=== PATIENT | female | born 1945 | race Caucasian/White ===

== ENCOUNTER 2018-04-05 04:40 | Emergency (ER) | payer MEDICARE ==
[2018-04-05 05:12] VITALS: BP 178/85
[2018-04-05] MEDS ORDERED: Sodium Chloride 0.9% 10 ML Syringe FLUSH PRN ×2 (05:18→05:56)
--- NOTE | 2018-04-05 05:47 | EDM.PDOC ---
ED HPI GENERAL MEDICAL PROBLEM - General Chief Complaint: Gastrointestinal Problem Stated Complaint: WEAK Time Seen by Provider: 04/05/18 05:06 Source of Information: Reports: Patient, Family, Old Records, RN Notes Reviewed History Limitations: Reports: No Limitations - History of Present Illness INITIAL COMMENTS - FREE TEXT/NARRATIVE: Brought by her Chief complaint Weakness History of present illness 72-year-old female with onset of fever and generalized weakness since last evening. He first started getting ill 2 days ago with generalized headache. Last night she needs some help getting into bed and then she need to go the bathroom this morning she couldn't get up about her 's assistance. Some nausea, vomited 1. Headache is frontal and throbbing/pulsing No visual changes Some nasal congestion, she feels like she might have a sinus infection. However no nasal obstruction no no coryza no cough No chest pain or shortness of breath No abdominal pain no diarrhea No skin rashes Some achiness. In particular she's no swelling in several of her fingers, she has had some arthritis previously but has gotten much worse. History of stroke with right-sided weakness, 2 years ago, fully recovered from that headache Pain Score (Numeric/FACES): 6 - Related Data Allergies Allergy/AdvReac Type Severity Reaction Status Date / Time Penicillins Allergy Rash Verified 04/05/18 04:44 rosuvastatin calcium Allergy Muscle Verified 04/05/18 04:44 [From Crestor] Aches Sulfa (Sulfonamide Allergy Rash Verified 04/05/18 04:44 Antibiotics) Home Meds: Home Meds Diltiazem HCl [Cartia Xt] 120 mg PO DAILY 04/05/18 [History] Doxycycline Monohydrate 100 mg PO BID #20 capsule 04/05/18 [Rx] atorvaSTATin Calcium [Atorvastatin Calcium] 20 mg PO BEDTIME 04/05/18 [History] Past Medical History HEENT History: Reports: Impaired Vision Cardiovascular History: Reports: High Cholesterol, Hypertension Respiratory History: Reports: Pneumonia, Recurrent Gastrointestinal History: Reports: None Genitourinary History: Reports: None [employer] History: Reports: Musculoskeletal History: Reports: Arthritis, Fracture Neurological History: Reports: CVA Psychiatric History: Reports: Depression Endocrine/Metabolic History: Reports: None Hematologic History: Reports: None Immunologic History: Reports: None Oncologic (Cancer) History: Reports: Squamous Cell Carcinoma Other Oncologic History: skin cancer Dermatologic History: Reports: Other (See Below) Other Dermatologic History: skin cancer removed - Infectious Disease History Infectious Disease History: Reports: Chicken Pox, Measles, Mumps - Past Surgical History HEENT Surgical History: Reports: Tonsillectomy Female Surgical History: Reports: Tubal Ligation Social & Family History - Tobacco Use Smoking Status *Q: Never Smoker - Caffeine Use Caffeine Use: Reports: Coffee Caffeine Use Comment: quit cafeine 2 days ago - Recreational Drug Use Recreational Drug Use: No ED ROS GENERAL - Review of Systems Review Of Systems: See Below Constitutional: Reports: Fever, Malaise, Weakness, Decreased Appetite, Other ( Decreased activity). Denies: Night Sweats, Diaphoresis HEENT: Reports: Rhinitis, Sinus Problem. Denies: Ear Pain, Eye Pain, Throat Pain Respiratory: Reports: No Symptoms. Denies: Shortness of Breath, Cough Cardiovascular: Reports: No Symptoms Endocrine: Reports: Fatigue GI/Abdominal: Reports: Nausea, Vomiting (Once). Denies: Abdominal Pain, Diarrhea, Hematemesis : Reports: No Symptoms Musculoskeletal: Reports: Joint Pain (Fingers), Joint Swelling (Fingers of the hands). Denies: Muscle Stiffness Skin: Reports: No Symptoms Neurological: Reports: Headache, Difficulty Walking (2 weakness needing assistance), Weakness, Gait Disturbance (Due to weakness needing assistance). Denies: Confusion, Dizziness, Change in Speech Psychiatric: Reports: No Symptoms Hematologic/Lymphatic: Reports: No Symptoms Immunologic: Reports: No Symptoms ED EXAM, GENERAL - Physical Exam Exam: See Below Exam Limited By: No Limitations General Appearance: Alert, Mild Distress, Other (She looks quite tiredLow-grade fever with elevation of systolic blood pressure, no difficulty speaking or breathing) Eye Exam: Bilateral Eye: EOMI, Normal Inspection Ears: Normal External Exam, Normal Canal, Normal TMs Nose: Normal Inspection. No: Nasal Deformity, Nasal Swelling Throat/Mouth: Normal Inspection, Normal Lips, Normal Oropharynx, Normal Voice Head: Atraumatic, Normocephalic Neck: Normal Inspection, Supple. No: Lymphadenopathy (R), Lymphadenopathy (L) Respiratory/Chest: No Respiratory Distress, Lungs Clear, Normal Breath Sounds, No Accessory Muscle Use Cardiovascular: Normal Peripheral Pulses, Regular Rate, Rhythm GI/Abdominal: Normal Bowel Sounds, Soft, Non-Tender, No Distention, No Abnormal Bruit Back Exam: Normal Inspection Extremities: Normal Inspection, Normal Range of Motion, Non-Tender. No: Pedal Edema Neurological: Alert, Oriented, No Motor/Sensory Deficits, Slow to Respond Psychiatric: Normal Affect Skin Exam: Warm, Dry, Intact, Normal Color, No Rash Lymphatic: No Adenopathy Course - Vital Signs Last Recorded V/S: Last Vital Signs Temp 38.4 C H 04/05/18 07:14 Pulse 81 04/05/18 04:57 Resp 16 04/05/18 04:57 BP 178/85 H 04/05/18 04:57 Pulse Ox 98 04/05/18 04:57 - Orders/Labs/Meds Orders: Active Orders 24 hr Category Date Time Status EKG Documentation Completion [RC] ASDIRECTED Care 04/05/18 05:19 Active Peripheral IV Care [RC] . DIRECTED Care 04/05/18 05:56 Active Chest 1V Frontal [CR] Stat Exams 04/05/18 05:18 Taken CULTURE BLOOD [BC] Urgent Lab 04/05/18 06:00 Received CULTURE BLOOD [BC] Urgent Lab 04/05/18 06:10 Received LYME, TOTAL AB TEST/REFLEX Routine Lab 04/05/18 05:50 Ordered UA W/MICROSCOPIC [URIN] Stat Lab 04/05/18 05:55 Ordered Sodium Chloride 0.9% [Normal Saline] 1,000 ml Med 04/05/18 06:00 Active IV ASDIRECTED Sodium Chloride 0.9% [Saline Flush] Med 04/05/18 05:18 Active 10 ml FLUSH ASDIRECTED PRN Sodium Chloride 0.9% [Saline Flush] Med 04/05/18 05:56 Active 10 ml FLUSH ASDIRECTED PRN Blood Culture x2 Reflex Set [OM.PC] Urgent Oth 04/05/18 05:58 Ordered Peripheral IV Insertion Adult [OM.PC] Routine Oth 04/05/18 05:56 Ordered EKG 12 Lead [EK] Routine Ther 04/05/18 05:18 Ordered Medication Orders Sodium Chloride (Normal Saline) 1,000 mls @ 250 mls/hr IV ASDIRECTED AMISHA Last Admin: 04/05/18 06:15 Dose: 250 mls/hr Sodium Chloride (Saline Flush) 10 ml FLUSH ASDIRECTED PRN PRN Reason: Keep Vein Open Last Admin: 04/05/18 06:29 Dose: 10 ml Sodium Chloride (Saline Flush) 10 ml FLUSH ASDIRECTED PRN PRN Reason: Keep Vein Open Last Admin: 04/05/18 07:15 Dose: 10 ml Labs: Laboratory Tests 04/05/18 04/05/18 04/05/18 Range/Units 05:30 05:30 05:57 WBC 7.0 (4.5-11.0) K/uL RBC 4.87 (3.30-5.50) M/uL Hgb 14.0 (12.0-15.0) g/dL Hct 41.4 (36.0-48.0) % MCV 85 (80-98) fL MCH 29 (27-31) pg MCHC 34 (32-36) % Plt Count 221 (150-400) K/uL Sodium 137 L (140-148) mmol/L Potassium 3.9 (3.6-5.2) mmol/L Chloride 103 (100-108) mmol/L Carbon Dioxide 28 (21-32) mmol/L Anion Gap 9.9 (5.0-14.0) mmol/L BUN 16 (7-18) mg/dL Creatinine 1.0 (0.6-1.0) mg/dL Est Cr Clr Drug Dosing 44.56 mL/min Estimated GFR (MDRD) 55 L (>60) Glucose 142 H (74-106) mg/dL Lactic Acid 0.8 (0.4-2.0) mmol/L Calcium 9.0 (8.5-10.1) mg/dL Total Bilirubin 0.5 D (0.2-1.0) mg/dL AST 34 D (15-37) U/L ALT 69 D (12-78) U/L Alkaline Phosphatase 117 H (46-116) U/L Troponin I < 0.017 (0.000-0.056) ng/mL Total Protein 7.0 (6.4-8.2) g/dL Albumin 3.5 (3.4-5.0) g/dL Globulin 3.5 (2.3-3.5) g/dL Albumin/Globulin Ratio 1.0 L (1.2-2.2) Meds: Medications Generic Name Dose Route Start Last Admin Trade Name Freq PRN Reason Stop Dose Admin Sodium Chloride 1,000 mls @ 250 mls/hr 04/05/18 06:00 04/05/18 06:15 Normal Saline IV 250 mls/hr ASDIRECTED AMISHA Administration Sodium Chloride 10 ml 04/05/18 05:18 04/05/18 06:29 Saline Flush FLUSH 10 ml ASDIRECTED PRN Administration Keep Vein Open Sodium Chloride 10 ml 04/05/18 05:56 04/05/18 07:15 Saline Flush FLUSH 10 ml ASDIRECTED PRN Administration Keep Vein Open Discontinued Medications Generic Name Dose Route Start Last Admin Trade Name Francisco PRN Reason Stop Dose Admin Acetaminophen 650 mg 04/05/18 07:15 04/05/18 07:14 Tylenol PO 04/05/18 07:16 650 mg ONETIME ONE Administration Ondansetron HCl 4 mg 04/05/18 05:56 04/05/18 06:28 Zofran IVPUSH 04/05/18 05:57 4 mg ONETIME ONE Administration - Re-Assessments/Exams Free Text/Narrative Re-Assessment/Exam: 04/05/18 05:48 72-year-old female presenting with fever headache and arthritis in her fingers, also nausea and emesis 1. Week to the point of needing assistance. Subtle findings on exam although she does have arthritis of her fingers. Alert and cooperative. Differential diagn of febrile illness includes viral infection, tickborne illness, pneumonia, urinary tract infection and early respiratory infection. Chest x-ray negative by my interpretation EKG shows sinus rhyth Q waves in III and F suggesting prior inferior infarction , no acute changes by my interpretation recheck your 04/05/18 07:01 Nausea, second emesis here in emergency IV saline administered and ondansetron 4 mg IV Blood cultures are pending WBC hemoglobin and platelets normal BUN/creatinine electrolytes normal except sodium 137 hepatic profile normal Lactate normal Troponin normal Impression is fever of uncertain cause, low-grade fever. Waiting for urinalysis Transferred to Dr. Castle pending results and disposition 04/05/18 07:03 04/05/18 07:20 discussion with patient and her will treat for possible tickborne illness Follow-up with primary care within the next week Return to emergency if worsening symptoms Departure - Departure Time of Disposition: 07:20 Disposition: Admitted As Inpatient 67 Condition: Good Clinical Impression: Febrile illness, acute Nausea and vomiting Qualifiers: Vomiting type: unspecified Vomiting Intractability: non-intractable Qualified Code(s): R11.2 - Nausea with vomiting, unspecified - Discharge Information Prescriptions: Doxycycline Monohydrate 100 mg PO BID #20 capsule Instructions: Fever, Adult Referrals: PCP,None [Primary Care Provider] - Forms: ED Department Discharge Additional Instructions: The cause of your fever is unclear at this time. Blood count is normal, chest x-ray does not show any signs of infection nor does urine. You have several symptoms suggestive of tickborne illness including fever, joint swelling, headache, and muscle weakness. For this reason you are being treated with doxycycline. Follow-up with your primary care provider within the next week for recheck and to get the remaining blood test results recommended Return to emergency if repeated vomiting, unable to walk, severe headache, or uncontrollable fever You may take significant in ibuprofen for pain and fever as needed - My Orders Last 24 Hours: My Active Orders 04/05/18 05:18 Chest 1V Frontal [CR] Stat Sodium Chloride 0.9% [Saline Flush] 10 ml FLUSH ASDIRECTED PRN EKG 12 Lead [EK] Routine 04/05/18 05:19 EKG Documentation Completion [RC] ASDIRECTED 04/05/18 05:50 LYME, TOTAL AB TEST/REFLEX Routine 04/05/18 05:55 UA W/MICROSCOPIC [URIN] Stat 04/05/18 05:56 Peripheral IV Care [RC] . DIRECTED Sodium Chloride 0.9% [Saline Flush] 10 ml FLUSH ASDIRECTED PRN Peripheral IV Insertion Adult [OM.PC] Routine 04/05/18 05:58 Blood Culture x2 Reflex Set [OM.PC] Urgent 04/05/18 06:00 CULTURE BLOOD [BC] Urgent Sodium Chloride 0.9% [Normal Saline] 1,000 ml IV ASDIRECTED 04/05/18 06:10 CULTURE BLOOD [BC] Urgent - Assessment/Plan Last 24 Hours: My Active Orders 04/05/18 05:18 Chest 1V Frontal [CR] Stat Sodium Chloride 0.9% [Saline Flush] 10 ml FLUSH ASDIRECTED PRN EKG 12 Lead [EK] Routine 04/05/18 05:19 EKG Documentation Completion [RC] ASDIRECTED 04/05/18 05:50 LYME, TOTAL AB TEST/REFLEX Routine 04/05/18 05:55 UA W/MICROSCOPIC [URIN] Stat 04/05/18 05:56 Peripheral IV Care [RC] . DIRECTED Sodium Chloride 0.9% [Saline Flush] 10 ml FLUSH ASDIRECTED PRN Peripheral IV Insertion Adult [OM.PC] Routine 04/05/18 05:58 Blood Culture x2 Reflex Set [OM.PC] Urgent 04/05/18 06:00 CULTURE BLOOD [BC] Urgent Sodium Chloride 0.9% [Normal Saline] 1,000 ml IV ASDIRECTED 04/05/18 06:10 CULTURE BLOOD [BC] Urgent
[2018-04-05] MEDS ORDERED: Acetaminophen 325 MG Tab, 50 Tab Bulk Bottle PO ONE (05:51)
[2018-04-05] MEDS ORDERED: Ondansetron 4 MG/2 ML SDV IVPUSH ONE (05:56)
[2018-04-05] MEDS ORDERED: Sodium Chloride 0.9% 1,000 ML IV SCH (06:00)
[2018-04-05] MEDS ORDERED: Acetaminophen 325 MG Tab PO ONE (07:15)
--- NOTE | 2018-04-05 08:55 | CR ---
CHEST: Portable CLINICAL HISTORY:Fever and weakness COMPARISON:None FINDINGS: Heart size and pulmonary vascular appear normal. There is some minimal patchy density in t he right lower lung field. Impression: Minimal right lower lobe airspace disease. If clinically relevant, short-term follow-up t wo-view chest recommended
[2018-04-09 10:11] LABS: LYME IGG/IGM AB <0.91 ISR (0.00-0.90)
== END 2018-04-05 07:55 | disposition critical access hospital (66) ==
LOC: JP.ED 04:40
DX: R50.9 Fever, unspecified (principal); R11.2 Nausea with vomiting, unspecified; E78.00 Pure hypercholesterolemia, unspecified; I10 Essential (primary) hypertension; Z87.01 Personal history of pneumonia (recurrent); Z88.0 Allergy status to penicillin; Z88.2 Allergy status to sulfonamides; Z79.899 Other long term (current) drug therapy
CPT/HCPCS: 36415; 71045; 80053; 81001; 83605; 84484; 85027; 87040; 93005; 96361; 96374; 99285; A9270; J2405; J7030; J7050; 86618; 99283

== ENCOUNTER 2018-04-06 13:30 | Emergency (ER) | payer MEDICARE ==
[2018-04-06 14:32] VITALS: BP 149/73
--- NOTE | 2018-04-06 16:35 | EDM.PDOC ---
ED HPI GENERAL MEDICAL PROBLEM - General Chief Complaint: Gastrointestinal Problem Stated Complaint: weakness nausA Time Seen by Provider: 04/06/18 14:45 Source of Information: Reports: Patient, Family History Limitations: Reports: No Limitations - History of Present Illness INITIAL COMMENTS - FREE TEXT/NARRATIVE: 72-year-old female who was seen in the emergency room 36 hours ago with fatigue , generalized malaise, nausea and headache was started on doxycycline for presumptive tick disease and sent home. She has taken 3 doses of doxycycline, the fourth dose was followed by emesis. She's had no fevers or chills, no rash, but does continue to have generalized malaise, weakness, and moderate joint pains. Her headache is continuing as well. She called the clinic and talked to her primary provider and he said something more must be going on and tick disease and told her to come back to the emergency room. Her has to assist her when she walks because she feels so weak but she has no asymmetry of symptoms, visual complaints, chest pain or abdominal pain, denies diarrhea. Onset: Gradual (Over the past 3-4 days) Severity: Moderate Associated Symptoms: Reports: Headaches, Loss of Appetite, Malaise, Nausea/ Vomiting, Weakness. Denies: Confusion, Chest Pain, Cough, Diaphoresis, Fever/ Chills, Shortness of Breath - Related Data Allergies Allergy/AdvReac Type Severity Reaction Status Date / Time Penicillins Allergy Rash Verified 04/05/18 04:44 rosuvastatin calcium Allergy Muscle Verified 04/05/18 04:44 [From Crestor] Aches Sulfa (Sulfonamide Allergy Rash Verified 04/05/18 04:44 Antibiotics) Home Meds: Home Meds Diltiazem HCl [Cartia Xt] 120 mg PO DAILY 04/05/18 [History] Doxycycline Monohydrate 100 mg PO BID #20 capsule 04/05/18 [Rx] atorvaSTATin Calcium [Atorvastatin Calcium] 20 mg PO BEDTIME 04/05/18 [History] Past Medical History HEENT History: Reports: Impaired Vision Cardiovascular History: Reports: High Cholesterol, Hypertension Respiratory History: Reports: Pneumonia, Recurrent Gastrointestinal History: Reports: None Genitourinary History: Reports: None [employer] History: Reports: Musculoskeletal History: Reports: Arthritis, Fracture Neurological History: Reports: CVA Psychiatric History: Reports: Depression Endocrine/Metabolic History: Reports: None Hematologic History: Reports: None Immunologic History: Reports: None Oncologic (Cancer) History: Reports: Squamous Cell Carcinoma Other Oncologic History: skin cancer Dermatologic History: Reports: Other (See Below) Other Dermatologic History: skin cancer removed - Infectious Disease History Infectious Disease History: Reports: Chicken Pox, Measles, Mumps - Past Surgical History HEENT Surgical History: Reports: Tonsillectomy Female Surgical History: Reports: Tubal Ligation Social & Family History - Tobacco Use Smoking Status *Q: Never Smoker Second Hand Smoke Exposure: No - Caffeine Use Caffeine Use: Reports: Coffee Caffeine Use Comment: quit cafeine 2 days ago - Recreational Drug Use Recreational Drug Use: No ED ROS GENERAL - Review of Systems Review Of Systems: See Below Constitutional: Reports: Malaise, Weakness, Decreased Appetite. Denies: Fever, Chills HEENT: Denies: Vision Change Respiratory: Denies: Shortness of Breath, Cough Cardiovascular: Denies: Chest Pain Endocrine: Reports: Fatigue GI/Abdominal: Reports: Nausea. Denies: Abdominal Pain : Reports: No Symptoms Musculoskeletal: Reports: Other (Diffuse joint pains, especially her arthritic joints such as hands and wrists) Skin: Reports: No Symptoms Neurological: Reports: Headache, Weakness. Denies: Confusion, Dizziness Psychiatric: Reports: No Symptoms ED EXAM, GENERAL - Physical Exam Exam: See Below Exam Limited By: No Limitations General Appearance: Alert, No Apparent Distress Eye Exam: Bilateral Eye: Normal Inspection Head: Atraumatic Neck: Normal Inspection, Supple, Other (No pain with range of motion) Respiratory/Chest: No Respiratory Distress, Lungs Clear Cardiovascular: Regular Rate, Rhythm GI/Abdominal: Tender (General discomfort with palpation but no focal tenderness) Extremities: Normal Inspection, No Pedal Edema Neurological: Alert, Oriented, No Motor/Sensory Deficits Psychiatric: Normal Affect, Normal Mood Skin Exam: Warm, Dry Course - Vital Signs Last Recorded V/S: Last Vital Signs Temp 97.9 F 04/06/18 14:29 Pulse 64 04/06/18 14:29 Resp 14 04/06/18 14:29 BP 149/73 H 04/06/18 14:29 Pulse Ox 96 04/06/18 14:29 - Orders/Labs/Meds Orders: Active Orders 24 hr Category Date Time Status WE[place] VIRUS ANTIBODY,SERUM Stat Lab 04/06/18 15:50 Received Labs: Laboratory Tests 04/06/18 04/06/18 Range/Units 15:43 15:43 WBC 7.0 (4.5-11.0) K/uL RBC 4.53 (3.30-5.50) M/uL Hgb 13.2 (12.0-15.0) g/dL Hct 38.4 (36.0-48.0) % MCV 85 (80-98) fL MCH 29 (27-31) pg MCHC 34 (32-36) % Plt Count 199 (150-400) K/uL Neut % (Auto) 60 (36-66) % Lymph % (Auto) 27 (24-44) % [place] % (Auto) 13 H (2-6) % Eos % (Auto) 0 L (2-4) % Baso % (Auto) 0 (0-1) % Sodium 134 L (140-148) mmol/L Potassium 4.1 (3.6-5.2) mmol/L Chloride 102 (100-108) mmol/L Carbon Dioxide 23 (21-32) mmol/L Anion Gap 13.1 (5.0-14.0) mmol/L BUN 19 H (7-18) mg/dL Creatinine 0.9 (0.6-1.0) mg/dL Est Cr Clr Drug Dosing 47.43 mL/min Estimated GFR (MDRD) > 60 (>60) Glucose 97 (74-106) mg/dL Calcium 8.8 (8.5-10.1) mg/dL Creatine Kinase 53 (26-192) U/L C-Reactive Protein 2.19 H (0.0-0.3) mg/dL - Re-Assessments/Exams Free Text/Narrative Re-Assessment/Exam: 04/06/18 17:32 CBC, CMP were redrawn as well as a West Nile virus antibody and CRP. CBC is still normal other than a slight elevation in monocytic percentage. CMP was also reassuring. CRP was only slightly elevated at 2.19. CK was normal. Discussed with the patient and her that this likely is a viral syndrome. She can continue with the doxycycline, I also gave her some Zofran to use sublingual for nausea and 10 hydrocodone for extra pain control over the next 3-5 days. She is going to increase activity and diet as tolerated and return if worsening. No indications for lumbar puncture at this time. Departure - Departure Time of Disposition: 17:31 Disposition: Home, Self-Care 01 Condition: Good Clinical Impression: Viral syndrome - Discharge Information Instructions: West Nile Virus Referrals: Edward Davis MD [Primary Care Provider] - Forms: ED Department Discharge Care Plan Goals: Rest, fluids, a regular dose of ibuprofen or naproxen should help. Add stronger pain medications if needed and use Zofran for nausea. Increase diet and activity as tolerated and consider rechecking in 3-4 days if not improving satisfactorily or return anytime if worsening - My Orders Last 24 Hours: My Active Orders 04/06/18 15:50 WE[place] VIRUS ANTIBODY,SERUM Stat - Assessment/Plan Last 24 Hours: My Active Orders 04/06/18 15:50 [place] VIRUS ANTIBODY,SERUM Stat
== END 2018-04-06 16:50 | disposition home or self-care (01) ==
LOC: JP.ED 13:30
DX: B34.9 Viral infection, unspecified (principal); E78.00 Pure hypercholesterolemia, unspecified; I10 Essential (primary) hypertension; Z88.0 Allergy status to penicillin; Z88.2 Allergy status to sulfonamides; Z88.8 Allergy status to other drugs, medicaments and biological substances; Z79.899 Other long term (current) drug therapy
CPT/HCPCS: 36415; 80048; 82550; 85025; 86140; 86788; 86789; 99283; 99285

== ENCOUNTER 2018-04-25 21:06 | Emergency (ER) | payer MEDICARE ==
--- NOTE | 2018-04-25 22:37 | EDM.PDOC ---
ED HPI GENERAL MEDICAL PROBLEM - General Chief Complaint: Fever Stated Complaint: FEVER,HEADACHE Time Seen by Provider: 04/25/18 21:30 Source of Information: Reports: Patient, Family History Limitations: Reports: No Limitations - History of Present Illness INITIAL COMMENTS - FREE TEXT/NARRATIVE: 73-year-old female who was receiving IV antibiotics for presumptive Lyme's disease was doing better, was active around the house last several days. Over the past 24-48 hours has developed abdominal cramps, diarrhea and yellowish stools. She has now developed a low-grade fever and a headache again. Onset: Gradual (Over the last 2 days) Severity: Moderate Associated Symptoms: Reports: Fever/Chills, Headaches, Other (Diarrhea with abdominal cramps). 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 (see below) Other Treatments TUBE CLEANING OPERATOR: Unknown Abdomen Pain Score (Numeric/FACES): 6 - Related Data Allergies Allergy/AdvReac Type Severity Reaction Status Date / Time Penicillins Allergy Rash Verified 04/25/18 21:35 Sulfa (Sulfonamide Allergy Rash Verified 04/25/18 21:35 Antibiotics) rosuvastatin calcium AdvReac Muscle Verified 04/25/18 21:35 [From Crestor] Aches Home Meds: Home Meds Diltiazem HCl [Cartia Xt] 120 mg PO .SUPPER 04/05/18 [History] atorvaSTATin Calcium [Atorvastatin Calcium] 20 mg PO BEDTIME 04/05/18 [History] Aspirin 81 mg PO DAILY 04/16/18 [History] Warfarin [Coumadin] 5 mg PO .EVENING 04/16/18 [History] Lisinopril 20 mg PO DAILY 04/18/18 [History] Metoprolol Tartrate 50 mg PO BID 04/18/18 [History] [id number] Sodium [Ceftriaxone] 2 gm IV DAILY 04/25/18 [History] Acetaminophen [Tylenol Extra Strength] 1,000 mg PO ASDIRECTED PRN 04/26/18 [ History] Past Medical History HEENT History: Reports: Impaired Vision Cardiovascular History: Reports: High Cholesterol, Hypertension Respiratory History: Reports: Bronchitis, Recurrent, Pneumonia, Recurrent Gastrointestinal History: Reports: None Genitourinary History: Reports: None 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: Musculoskeletal History: Reports: Arthritis, Fracture, Other (See Below) Other Musculoskeletal History: left ankle- no metal Neurological History: Reports: CVA, Other (See Below) Other Neuro History: CVA 10/2015 Psychiatric History: Reports: Anxiety, Depression Endocrine/Metabolic History: Reports: None Hematologic History: Reports: None Immunologic History: Reports: None Oncologic (Cancer) History: Reports: Squamous Cell Carcinoma Other Oncologic History: skin cancer Dermatologic History: Reports: Other (See Below) Other Dermatologic History: skin cancer removed - Infectious Disease History Infectious Disease History: Reports: Chicken Pox - Past Surgical History Head Surgeries/Procedures: Reports: None HEENT Surgical History: Reports: Tonsillectomy Cardiovascular Surgical History: Reports: None Respiratory Surgical History: Reports: None GI Surgical History: Reports: Colonoscopy Female Surgical History: Reports: Tubal Ligation Endocrine Surgical History: Reports: None Neurological Surgical History: Reports: None Musculoskeletal Surgical History: Reports: None Oncologic Surgical History: Reports: None Dermatological Surgical History: Reports: Skin Biopsy, Other (See Below) Social & Family History - Tobacco Use Smoking Status *Q: Never Smoker Second Hand Smoke Exposure: No - Caffeine Use Caffeine Use: Reports: Coffee Caffeine Use Comment: quit cafeine 2 days ago - Recreational Drug Use Recreational Drug Use: No ED ROS GENERAL - Review of Systems Review Of Systems: See Below Constitutional: Reports: Fever, Malaise. Denies: Chills HEENT: Denies: Eye Pain, Vision Change Respiratory: Denies: Shortness of Breath Cardiovascular: Denies: Chest Pain GI/Abdominal: Reports: Abdominal Pain (Intermittent cramping), Diarrhea. Denies : Nausea, Vomiting Skin: Reports: No Symptoms Neurological: Reports: Headache ED EXAM, GENERAL - Physical Exam Exam: See Below Exam Limited By: No Limitations General Appearance: Alert, No Apparent Distress Eye Exam: Bilateral Eye: Normal Inspection (No jaundice) Respiratory/Chest: No Respiratory Distress Cardiovascular: Regular Rate, Rhythm. No: Tachycardia GI/Abdominal: Soft, Tender (Mild tenderness diffusely, especially in the periumbilical area but no focal guarding or rebound) Extremities: Other (A PICC line is in the right arm, no inflammation) Neurological: Alert, Oriented, No Motor/Sensory Deficits Psychiatric: Flat Affect Skin Exam: Warm, Dry Course - Vital Signs Last Recorded V/S: Last Vital Signs Temp 100.8 F H 04/25/18 23:19 Pulse 76 04/25/18 23:19 Resp 14 04/25/18 23:19 BP 164/84 H 04/25/18 23:19 Pulse Ox 98 04/25/18 23:19 - Orders/Labs/Meds Orders: Active Orders 24 hr Category Date Time Status WBC, STOOL [OP] Stat Lab 04/25/18 22:32 Ordered - Re-Assessments/Exams Free Text/Narrative Re-Assessment/Exam: 04/25/18 23:54 A strong suspicion for C. difficile is present, patient attempted several times over 3 hours to give a stool sample but was unable. They did not want to stay around so supplies were given for a stool sample, she was able to give a very small amount prior to leaving that showed no significant WBCs. Departure - Departure Time of Disposition: 01:00 Disposition: Home, Self-Care 01 Condition: Good Clinical Impression: Diarrhea Qualifiers: Diarrhea type: presumed infectious Qualified Code(s): R19.7 - Diarrhea, unspecified - Discharge Information Instructions: Diarrhea, Adult, [id number] Referrals: Edward Davis MD [Primary Care Provider] - Forms: ED Department Discharge Care Plan Goals: If you feel better tomorrow, fever and diarrhea are better, no further workup or treatment is needed. If not improving satisfactorily bring a stool sample in for testing when able. - My Orders Last 24 Hours: My Active Orders 04/25/18 22:32 WBC, STOOL [OP] Stat - Assessment/Plan Last 24 Hours: My Active Orders 04/25/18 22:32 WBC, STOOL [OP] Stat
[2018-04-25 23:21] VITALS: BP 164/84
== END 2018-04-26 00:20 | disposition home or self-care (01) ==
LOC: JP.ED 21:06
DX: R19.7 Diarrhea, unspecified (principal); I10 Essential (primary) hypertension; Z79.899 Other long term (current) drug therapy; Z79.82 Long term (current) use of aspirin; Z88.0 Allergy status to penicillin; Z88.2 Allergy status to sulfonamides; Z88.8 Allergy status to other drugs, medicaments and biological substances
CPT/HCPCS: 89055; 99284

== ENCOUNTER 2019-02-21 09:20 | Emergency (ER) | payer MEDICARE ==
[2019-02-21 09:28] VITALS: BP 192/75
--- NOTE | 2019-02-21 09:48 | EDM.PDOC ---
ED HPI GENERAL MEDICAL PROBLEM - General Chief Complaint: Neuro Symptoms/Deficits Stated Complaint: TROUBLE SPEAKING Time Seen by Provider: 02/21/19 09:39 Source of Information: Reports: Patient, Family History Limitations: Reports: No Limitations - History of Present Illness INITIAL COMMENTS - FREE TEXT/NARRATIVE: 73-year-old female who woke up this morning with expressive aphasia. She has a history of a left-sided ischemic stroke several years ago. Because of the persistence of symptoms she was brought in to the emergency room, however shortly after arriving her symptoms seemed to have resolved. She has no peripheral weakness, facial weakness, headache, fever, nausea or vomiting or other symptoms. Last year she developed a period of encephalitis felt to be from Lyme's disease although was never proven. Onset: Unknown/Unsure (Symptoms developed sometime overnight) Associated Symptoms: Reports: No Other Symptoms - Related Data Allergies Allergy/AdvReac Type Severity Reaction Status Date / Time Penicillins Allergy Rash Verified 02/21/19 09:28 Sulfa (Sulfonamide Allergy Rash Verified 02/21/19 09:28 Antibiotics) rosuvastatin calcium AdvReac Muscle Verified 02/21/19 09:28 [From [place]] Aches Home Meds: Home Meds Diltiazem HCl [Cartia Xt] 120 mg PO .SUPPER 04/05/18 [History] atorvaSTATin Calcium [Atorvastatin Calcium] 20 mg PO BEDTIME 04/05/18 [History] Aspirin 81 mg PO DAILY 04/16/18 [History] Metoprolol Tartrate 50 mg PO BID 04/18/18 [History] Citalopram Hydrobromide [Celexa] 10 mg PO DAILY #30 tablet 05/06/18 [Rx] LORazepam 0.5 mg PO QID #12 tablet 05/06/18 [Rx] Lactobacillus Rhamnosus GG [Culturelle] 1 cap PO BID #60 cap 05/06/18 [Rx] Lisinopril [Prinivil] 20 mg PO BID #60 tablet 05/06/18 [Rx] Magnesium Oxide 400 mg PO BID #60 tablet 05/06/18 [Rx] Sotalol [Betapace] 40 mg PO BID #60 tablet 05/06/18 [Rx] Methotrexate 2.5 mg PO ASDIRECTED 02/21/19 [History] Warfarin [Coumadin] 5 mg PO DAILY 02/21/19 [History] Past Medical History HEENT History: Reports: Impaired Vision Cardiovascular History: Reports: High Cholesterol, Hypertension Other Cardiovascular History: a fib Respiratory History: Reports: Bronchitis, Recurrent, Pneumonia, Recurrent Gastrointestinal History: Reports: None Genitourinary History: Reports: None 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: Musculoskeletal History: Reports: Arthritis, Fracture, Other (See Below) Other Musculoskeletal History: left ankle- no metal Neurological History: Reports: CVA, Other (See Below) Other Neuro History: CVA 10/2015 Psychiatric History: Reports: Anxiety, Depression Endocrine/Metabolic History: Reports: None Hematologic History: Reports: None Immunologic History: Reports: None Oncologic (Cancer) History: Reports: Squamous Cell Carcinoma Other Oncologic History: skin cancer Dermatologic History: Reports: Other (See Below) Other Dermatologic History: skin cancer removed on face and back - Infectious Disease History Infectious Disease History: Reports: Chicken Pox - Past Surgical History Head Surgeries/Procedures: Reports: None HEENT Surgical History: Reports: Tonsillectomy Cardiovascular Surgical History: Reports: Varicose Respiratory Surgical History: Reports: None GI Surgical History: Reports: Colonoscopy Female Surgical History: Reports: Tubal Ligation Endocrine Surgical History: Reports: None Neurological Surgical History: Reports: None Musculoskeletal Surgical History: Reports: None Oncologic Surgical History: Reports: None Dermatological Surgical History: Reports: Skin Biopsy, Other (See Below) Social & Family History - Family History Family Medical History: Noncontributory - Tobacco Use Smoking Status *Q: Never Smoker - Caffeine Use Caffeine Use: Reports: Coffee, Soda Caffeine Use Comment: quit cafeine 2 days ago - Recreational Drug Use Recreational Drug Use: No - Living Situation & Occupation Living situation: Reports: Occupation: Retired (lives with .) ED ROS GENERAL - Review of Systems Review Of Systems: See Below Constitutional: Denies: Fever, Chills, Malaise HEENT: Denies: Vision Change Respiratory: Denies: Shortness of Breath Cardiovascular: Denies: Chest Pain GI/Abdominal: Denies: Abdominal Pain, Nausea, Vomiting Skin: Denies: Bruising Neurological: Reports: Trouble Speaking. Denies: Dizziness, Headache ED EXAM, NEURO - Physical Exam Exam: See Below Exam Limited By: No Limitations General Appearance: Alert, No Apparent Distress Eye Exam: Bilateral Eye: EOMI Head Exam: Atraumatic Respiratory/Chest: No Respiratory Distress Neurological: Alert, Oriented x 3, Other (Speech is now clear, no aphasia) Course - Vital Signs Last Recorded V/S: Last Vital Signs Temp 98.4 F 02/21/19 09:26 Pulse 82 02/21/19 09:26 Resp 15 02/21/19 09:26 BP 192/75 H 02/21/19 09:26 Pulse Ox 94 L 02/21/19 09:26 - Orders/Labs/Meds Orders: Active Orders 24 hr Category Date Time Status Head wo Cont [CT] Stat Exams 02/21/19 09:49 Taken - Re-Assessments/Exams Free Text/Narrative Re-Assessment/Exam: 02/21/19 09:[address] without contrast was obtained and will be compared to the last years results. 02/21/19 15:[address] was stable from previous films. Patient was discharged and will return if symptoms recur. Departure - Departure Time of Disposition: 10:38 Disposition: Home, Self-Care 01 Condition: Good Clinical Impression: TIA (transient ischemic attack) - Discharge Information Instructions: Transient Ischemic Attack, [id number] Referrals: Edward Davis MD [Primary Care Provider] - Forms: ED Department Discharge Care Plan Goals: Continue your current medications, increase activity and diet as tolerated and return anytime if symptoms recur and are persistent or concerning - My Orders Last 24 Hours: My Active Orders 02/21/19 09:49 Head wo Cont [CT] Stat - Assessment/Plan Last 24 Hours: My Active Orders 02/21/19 09:49 Head wo Cont [CT] Stat
--- NOTE | 2019-02-21 16:11 | CRLCT ---
INDICATION: Expressive aphasia TECHNIQUE: CT head without contrast. COMPARISON: 10/24/2016 FINDINGS: There is mild age-related cortical atrophy. The ventricles are within normal limits for the patient`s age. There is no mass effect or midline shift. White matter hypodensities are suggestive of chronic small vessel ischemic changes. There is a small chronic lacunar infarct in the posterior limb of the left internal capsule. There is no loss of shine-white differentiation. Focal cortical hypodensity in the right temporal lobe on image 17 is presumably related to regional artifact, seen on the prior. There is no evidence of an acute intracranial hemorrhage. No acute calvarial fracture is seen. The visualized paranasal sinuses and mastoid air cells are clear. The visualized orbits are within normal limits. IMPRESSION: No evidence of an acute intracranial hemorrhage, mass effect or loss of shine-white differentiation. Chronic ischemic changes. Dictated by Sinan Long MD @ 02/21/2019 4:09:39 PM Please note that all CT scans at this facility use dose modulation, iterative reconstruction, and/or weight-based dosing when appropriate to reduce radiation dose to as low as reasonably achievable. Dictated by: Sinan Long MD @ 02/21/2019 16:09:51 (Electronically Signed)
== END 2019-02-21 10:37 | disposition home or self-care (01) ==
LOC: JP.ED 09:20
DX: G45.9 Transient cerebral ischemic attack, unspecified (principal); F41.9 Anxiety disorder, unspecified; F32.9 Major depressive disorder, single episode, unspecified; I10 Essential (primary) hypertension; E78.00 Pure hypercholesterolemia, unspecified; Z79.82 Long term (current) use of aspirin; Z79.899 Other long term (current) drug therapy; Z88.0 Allergy status to penicillin; Z88.2 Allergy status to sulfonamides; Z88.8 Allergy status to other drugs, medicaments and biological substances
CPT/HCPCS: 70450; 99283; 99285-25